=== PATIENT | female | born 1990 | race Caucasian/White ===

== ENCOUNTER 2020-12-01 11:56 | Observation (INO) ==
[2020-12-01] MEDS ORDERED: Ringers Solution, Lactated 1,000 ML ONE (14:49)
[2020-12-01] MEDS ORDERED: Metoclopramide 10 MG/2 ML VIAL IVP ONE (14:58)
[2020-12-01] MEDS ORDERED: Famotidine 20 MG/2 ML VIAL IVP ONE (14:58)
[2020-12-01] MEDS ORDERED: Ringers Solution, Lactated 1,000 ML IVC ONE (14:58)
[2020-12-01] MEDS ORDERED: Ringers Solution, Lactated 1,000 ML IVC SCH (15:00)
[2020-12-01] MEDS ORDERED: Doxycycline 100 MG in 0.9 % Sodium Chloride Mini Bag 100 ML IVPB STA (16:16)
[2020-12-01] MEDS ORDERED: Rho Immune Globulin 1,500 UNIT SYRINGE IM ONE (16:30)
[2020-12-01] MEDS ORDERED: Dexamethasone 4 MG/ML VIAL ONE (16:49)
[2020-12-01] MEDS ORDERED: *HR* Midazolam HCl 2 MG/2 ML VIAL ONE (16:49)
[2020-12-01] MEDS ORDERED: Ondansetron 4 MG/2 ML VIAL ONE (16:49)
[2020-12-01] MEDS ORDERED: *HR* Propofol 200 MG/20 ML VIAL IVP ONE (16:50)
[2020-12-01] MEDS ORDERED: *HR* FentaNYL (PF) 100 MCG/2 ML VIAL ONE (16:50)
[2020-12-01] MEDS ORDERED: Lidocaine -MPF 2% 5 ML VIAL ONE (16:51)
[2020-12-01] MEDS ORDERED: Ketorolac 30 MG/ML VIAL ONE (18:35)
[2020-12-01] MEDS ORDERED: Methylergonovine 0.2 MG/ML AMPUL IM ONE (19:59)
[2020-12-01 20:04] VITALS: BP 117/68
== END 2020-12-01 20:00 | disposition home or self-care (01) ==
LOC: SAMDAY 11:56 → 1NENULAB 11:56
PROVIDERS: ADMIT Student in an Organized Health Care Education/Training Program; ATTEND Student in an Organized Health Care Education/Training Program

== ENCOUNTER 2021-12-11 08:00 | Inpatient (IN) ==
[2021-12-11] MEDS ORDERED: Metoclopramide 10 MG/2 ML VIAL IVP PRN (08:04)
[2021-12-11] MEDS ORDERED: Naloxone 0.4 MG/ML INJ IVP PRN (08:04)
[2021-12-11] MEDS ORDERED: Famotidine 20 MG/2 ML VIAL IVP PRN (08:04)
[2021-12-11] MEDS ORDERED: *HR* Nalbuphine 10 MG/ML AMPUL IV PRN (08:04)
[2021-12-11] MEDS ORDERED: miSOPROStoL 25 MCG TABLET PO PRN (08:46)
[2021-12-11] MEDS ORDERED: Oxytocin 20 units/ LR 1000 mL 20 UNIT/1,000 ML BAG IVC SCH (09:00)
[2021-12-11 09:05] LABS: Basophils % 0.2 %; Eosinophils # 0.2 K/mcL (0.0-0.6); Eosinophils % 1.1 %; Hemoglobin 10.4 g/dL (11.5-15.4); Mean Corpuscular HGB Conc 32.5 g/dL (31.6-35.5); Mean Corpuscular Hemoglobin 25.1 pg (28.0-33.3); Mean Corpuscular Volume 77.1 fL (83.0-100.0); Mean Platelet Volume 9.4 fL (9.4-12.4); Monocytes # 0.8 K/mcL (0.0-1.3); Monocytes % 5.7 %; Neutrophils # 10.3 K/mcL (1.6-8.9); Platelet Count 279 K/mcL (140-400); Red Blood Count 4.15 M/mcL (3.82-4.97); Red Cell Distribution Width 14.7 % (11.5-14.5); White Blood Count 13.3 K/mcL (4.3-11.1)
[2021-12-11] MEDS: Ringers Solution, Lactated 1,000 ML IVC SCH ×2 (09:37→16:53)
[2021-12-11 09:42] LABS: Influenza A PCR Negative (Negative); Influenza B PCR Negative (Negative); Resp. Syncytial Virus PCR Negative (Negative)
[2021-12-11 09:51] LABS: SARS-CoV-2 by PCR (In House) Negative (Negative)
[2021-12-11 10:46] LABS: Amphetamine Screen,Urine Negative ng/mL (Cutoff=1000); Barbiturate Screen,Urine Negative ng/mL (Cutoff=200); Benzodiazepines Screen,Urine Negative ng/mL (Cutoff=200); Cannabinoid Screen,Urine Negative ng/mL (Cutoff = 50); Cocaine Screen,Urine Negative ng/mL (Cutoff= 300); Opiate Screen,Urine Negative ng/mL (Cutoff=300); Phencyclidine Screen,Urine Negative ng/mL (Cutoff=25)
[2021-12-11] MEDS ORDERED: Ondansetron 4 MG/2 ML VIAL IVP SCH (12:00)
[2021-12-11] MEDS ORDERED: EPHEDrine 50 MG/ML VIAL IVP PRN (12:30)
[2021-12-11] MEDS ORDERED: *HR* FentaNYL (PF) 100 MCG/2 ML VIAL EP ONE (12:30)
[2021-12-11] MEDS ORDERED: Ropivacaine/PF 0.2% 20 ML VIAL EP ONE (12:30)
[2021-12-11] MEDS: Epidural Premix (fent/bupiv) 110 ML EP SCH ×2 (16:44→23:04)
[2021-12-12] MEDS ORDERED: Lidocaine 1% 20 ML MDV ONE (04:19)
[2021-12-12] MEDS ORDERED: Lanolin 7 G OINT...G. TP PRN (07:42)
[2021-12-12] MEDS ORDERED: Ondansetron ODT 4 MG TAB.RAPDIS SL PRN (07:42)
[2021-12-12] MEDS ORDERED: Oxytocin 20 units/ LR 1000 mL 20 UNIT/1,000 ML BAG IVC ONE (07:42)
[2021-12-12] MEDS ORDERED: Benzocaine/Menthol 56 GM AEROSOL SPRAY TP PRN (07:42)
[2021-12-12] MEDS ORDERED: Measles/Mumps/Rubella Vacc 0.5 ML VIAL SQ PRN (07:42)
[2021-12-12] MEDS ORDERED: Oxytocin 20 units/ LR 1000 mL 20 UNIT/1,000 ML BAG IVC SCH (07:42)
[2021-12-12] MEDS ORDERED: Rho Immune Globulin 1,500 UNIT SYRINGE IM PRN (07:42)
[2021-12-12] MEDS ORDERED: Prenatal Vit/FA 1 EACH TABLET PO SCH (09:00)
[2021-12-12] MEDS: Acetaminophen 325 MG TABLET PO SCH ×2 (09:45→20:01)
[2021-12-12] MEDS: Ibuprofen 600 MG TABLET PO SCH ×2 (09:46→20:01)
[2021-12-12] MEDS: Prenatal Vit/FA 1 EACH TABLET PO SCH (09:46)
[2021-12-13 04:35] VITALS: O2SAT 96
[2021-12-13 04:37] LABS: Basophils % 0.2 %; Eosinophils # 0.3 K/mcL (0.0-0.6); Eosinophils % 1.9 %; Hematocrit 30.9 % (35.3-44.9); Hemoglobin 9.7 g/dL (11.5-15.4); Lymphocytes # 2.6 K/mcL (0.6-4.6); Lymphocytes % 16.4 %; Mean Corpuscular HGB Conc 31.4 g/dL (31.6-35.5); Mean Corpuscular Hemoglobin 24.7 pg (28.0-33.3); Mean Corpuscular Volume 78.8 fL (83.0-100.0); Mean Platelet Volume 9.6 fL (9.4-12.4); Monocytes # 1.1 K/mcL (0.0-1.3); Monocytes % 6.8 %; Neutrophils # 11.8 K/mcL (1.6-8.9); Platelet Count 251 K/mcL (140-400); Red Blood Count 3.92 M/mcL (3.82-4.97); Red Cell Distribution Width 14.8 % (11.5-14.5); Segmented Neutrophils % 73.7 %; White Blood Count 16.1 K/mcL (4.3-11.1)
[2021-12-13 07:04] VITALS: BP 124/80; PULSE 73; TEMP 97.7
[2021-12-13] MEDS: Acetaminophen 325 MG TABLET PO SCH (09:21)
[2021-12-13] MEDS: Ibuprofen 600 MG TABLET PO SCH (09:21)
[2021-12-13] MEDS: Prenatal Vit/FA 1 EACH TABLET PO SCH (09:22)
== END 2021-12-13 13:00 | disposition home or self-care (01) | DRG 807 ==
LOC: 1NENULAB 08:01 → 1NENUOBS 12-12 07:36
PROVIDERS: ADMIT Student in an Organized Health Care Education/Training Program; ATTEND Student in an Organized Health Care Education/Training Program